=== PATIENT | male | born 1965 ===

== ENCOUNTER 2021-03-01 16:27 | Emergency (ER) | payer MEDICAID ==
[~2021-03-01] VITALS: Ht 182.9 cm; Wt 83.9 kg
[2021-03-01] MEDS ORDERED: IBUPROFEN 600 MG TABLET PO ONE (16:30)
[2021-03-01] MEDS ORDERED: IBUPROFEN 600 MG TABLET ONE (16:46)
--- NOTE | 2021-03-01 17:21 | NUR ---
Patient is resting comfortably on gurney with eyes closed, NAD, for disposition.
[2021-03-01] MEDS ORDERED: IBUP-1955 PO (17:25)
[2021-03-01] MEDS ORDERED: ALBU6.7H9 INH (17:25)
--- NOTE | 2021-03-01 17:37 | NUR ---
Patient was given written and verbal discharge instructions with slow steady gait using his wheeled luggage as support for walking. Patient verbalized understanding and compliance of instructions. Patient refuses offer of halfway placement. Patient was given list of available shelters in surrounding area. Patient left ER in stable condition.
== END 2021-03-01 17:39 | disposition home or self-care (01) ==
LOC: ER 16:27
DX: B34.9 Viral infection, unspecified (principal); Z20.822 Contact with and (suspected) exposure to COVID-19; Z59.0 Homelessness; I10 Essential (primary) hypertension; F17.210 Nicotine dependence, cigarettes, uncomplicated